=== PATIENT | female | born 1995 | race African-American/Black ===

== ENCOUNTER 2017-08-31 16:57 | Emergency (ER) | payer SELFPAY ==
[~2017-08-31 16:57] MED LIST: ACYC400T PO; DEPO150I IM; LOES1TAB2 PO
[2017-08-31 16:59] VITALS: BP 144/88; PULSE 105; RESP 14; TEMP 98.2; O2SAT 99
--- NOTE | 2017-08-31 19:13 | PD ---
HPI Chief Complaint: GI Complaint Time Seen by Provider: 19:13 Travel History International Travel<30 days: No Contact w/Intl Traveler<30days: No Traveled to known affect area: No History of Present Illness HPI 22 year-old female with history of asthma presents to emergency department for evaluation of nausea and vomiting after eating a great cup from [employer] this afternoon. Patient is reporting epigastric discomfort, moderate in nature. It does not radiate anywhere. No fever or chills. She has had no abdominal surgeries. Last menstrual cycle was August 25. She has no other symptoms to report. PFS Past Medical History Asthma: Yes Developmental Delay: No Diminished Hearing: No Respiratory: Yes (ASTHMA) Immunizations Current: Yes : 2 : 1 Social History Alcohol Use: No Tobacco Use: No Substance Use: No Allergies-Medications (Allergen,Severity, Reaction): Coded Allergies: No Known Allergies (Verified , 07/25/16) Reported Meds & Prescriptions Reported Meds & Active Scripts Active Acyclovir 400 Mg Tab 400 Mg PO BID Depo-Provera Contraceptive (Medroxyprogesterone Acetate) 150 Mg/Ml Susp 150 Mg IM Q90D Loestrin Fe 1/20 (Ethinyl Estradiol/Norethindron/Iron) 28 Tab Pack 1 Tab PO DAILY Review of Systems Except as stated in HPI: all other systems reviewed are Neg Physical Exam Narrative GENERAL: Well-nourished, well-developed female patient, ambulatory and in no acute distress. SKIN: Focused skin assessment warm/dry. HEAD: Normocephalic. EYES: No scleral icterus. No injection or drainage. NECK: Supple, trachea midline. CARDIOVASCULAR: Elevated rate. RESPIRATORY: Breath sounds equal bilaterally. No accessory muscle use. GASTROINTESTINAL: Abdomen nondistended. MUSCULOSKELETAL: No cyanosis, or edema. BACK: without obvious deformity. Data Data Last Documented VS Vital Signs Date Time Temp Pulse Resp B/P (MAP) Pulse Ox O2 Delivery O2 Flow Rate FiO2 08/31/17 18:59 08/31/17 16:59 98.2 105 14 99 Orders Orders Ed Urine Pregnancytest Poc (08/31/17 17:08) MDM Medical Decision Making Medical Screen Exam Complete: Yes Emergency Medical Condition: Yes Medical Record Reviewed: Yes Differential Diagnosis Gastritis versus gastroenteritis versus food poisoning versus electrolyte abnormality versus Narrative Course 22 year-old female presents to the emergency department for evaluation of nausea and vomiting. Patient appears without distress. Her vital signs are stable although she is slightly tachycardic. Workup was initiated in triage. Prior to patient going to a medical bed, she chooses to leave AGAINST MEDICAL ADVICE. AMA: The risks of leaving against medical advice without further evaluation treatment were discussed with the patient. These risks include cardiac dysfunction, cardiac dysrhythmia, possible heart attack, possible stroke or . The patient indicated understanding of these risks and appeared to have the capacity to make this decision. Diagnosis Primary Impression: Nausea and vomiting Qualified Codes: R11.2 - Nausea with vomiting, unspecified Disposition: 07 AGAINST MEDICAL ADVICE Condition: Stable TejedaKaren yoo CIARRA Aug 31, 2017 19:13
== END 2017-08-31 18:10 | disposition left against medical advice (07) ==
LOC: NED 16:57
DX: R11.2 Nausea with vomiting, unspecified (principal)
CPT/HCPCS: 99281

== ENCOUNTER 2017-09-17 23:27 | Emergency (ER) | payer SELFPAY ==
[~2017-09-17] VITALS: Ht 165.1 cm; Wt 105.0 kg
[2017-09-17 23:29] VITALS: BP 167/108; PULSE 83; RESP 16; TEMP 97.8; O2SAT 97
--- NOTE | 2017-09-17 23:58 | PD ---
HPI Chief Complaint: ENT Complaint Time Seen by Provider: 23:41 Travel History International Travel<30 days: No Contact w/Intl Traveler<30days: No Traveled to known affect area: No History of Present Illness HPI Patient comes in complaining of possible foreign body in right ear. Patient states 2 days ago she was cleaning her ears with Q-tips when the cotton ball stuck in her right ear. Patient states her supervisor alteration workroom tried flushing her ear out without success and is making the pain worse. Patient describes pain as an intermittent Sharp stabbing pain in the right ear without radiation. Patient denies anything making it better. Denies any fevers or change in hearing. PFSH Past Medical History Asthma: Yes Developmental Delay: No Diminished Hearing: No Respiratory: Yes (ASTHMA) Immunizations Current: Yes ?: Not LMP: 08/25/17 : 2 : 1 Past Surgical History Section: Yes Social History Alcohol Use: No Tobacco Use: No Substance Use: No Allergies-Medications (Allergen,Severity, Reaction): Coded Allergies: No Known Allergies (Verified Adverse Reaction, Unknown, 09/17/17) Reported Meds & Prescriptions Reported Meds & Active Scripts Active Sejbokcm-Skgirppig-DD Otic Drops (Neomycin/Polymyxin/Hydrocortisone) 1 % Soln 4 Drop RIGHT EAR QID Acyclovir 400 Mg Tab 400 Mg PO BID Depo-Provera Contraceptive (Medroxyprogesterone Acetate) 150 Mg/Ml Susp 150 Mg IM Q90D Loestrin Fe 1/20 (Ethinyl Estradiol/Norethindron/Iron) 28 Tab Pack 1 Tab PO DAILY Review of Systems Except as stated in HPI: all other systems reviewed are Neg Physical Exam Narrative GENERAL: Well-developed, overly nourished, in no acute distress, and non-ill appearing. SKIN: Focused skin assessment warm and dry. HEAD: Atraumatic. Normocephalic. EYES: Pupils equal and round. EOMI. No scleral icterus. No injection or drainage. ENT: No nasal bleeding or discharge. Mucous membranes pink and moist. Tympanic membranes pearly colbert bilaterally. Right auditory canal shows small amount of cerumen with no obvious foreign body noted. NECK: Trachea midline. Supple. No nuclear rigidity. RESPIRATORY: No accessory muscle use. No respiratory distress. MUSCULOSKELETAL: No obvious deformities. No clubbing. No cyanosis. No edema. Full range of motion. NEUROLOGICAL: Awake and alert. No obvious cranial nerve deficits. Motor grossly within normal limits. Normal speech. PSYCHIATRIC: Appropriate mood and affect; insight and judgment normal. Data Data Last Documented VS Vital Signs Date Time Temp Pulse Resp B/P (MAP) Pulse Ox O2 Delivery O2 Flow Rate FiO2 09/17/17 23:29 97.8 83 16 167/108 (127) 97 Room Air Orders Orders Ed Discharge Order (09/17/17 23:59) MDM Medical Decision Making Medical Screen Exam Complete: Yes Emergency Medical Condition: Yes Differential Diagnosis Retained foreign body, otitis media, otitis externa, otalgia Narrative Course Verbal consent was obtained. Right ear was flushed multiple times using warm water. Small amount of cerumen was removed. There was reexamined with no foreign body noted. Will place patient on prophylactic otic eardrops secondary to recent foreign body to prevent secondary infection. Patient in no obvious distress upon re-evaluation. Patient was asked if they wanted to speak to my attending, which the patient did not wish to do at this time. Any questions/concerns in reference to patient diagnosis/condition discussed and clarified prior to patient's discharge. Reinforced sheer importance of close follow up with patient's primary physician or primary care clinic and/or ENT. Instructed patient to return to ED immediately, if symptoms return/worsen. Patient showed understanding of above instructions. Further instructions and recommendations were detailed in discharge paperwork. Patient ambulated without difficulty out of ED at discharge. Diagnosis Primary Impression: Foreign body in ear Qualified Codes: T16.1XXA - Foreign body in right ear, initial encounter Referrals: Alejandro Paige MD [facility] Patient Instructions: Ear Foreign Body (ED), General Instructions Additional Instructions: Follow-up with your primary care physician and/or ENT in 3-5 days for reevaluation. Take all medication as prescribed. Return to the emergency department if symptoms get worse. Med/Other Pt SpecificInfo: Prescription(s) given Scripts Hfzymtao-Nfxltedlf-UW Otic Drops (Ubgfdwdo-Yfngpqoml-WF Otic Drops) 1 % Soln 4 DROP RIGHT EAR QID for Infection, #1 BOTTLE 0 Refills Prov: Chris Steele MD 09/17/17 Disposition: 01 DISCHARGE HOME Condition: Stable Pedro Luis Conti Sep 17, 2017 23:58
[2017-09-17] MEDS ORDERED: CORTI10A RIGHT EAR (23:59)
== END 2017-09-18 00:19 | disposition home or self-care (01) ==
LOC: NEPD 23:27
DX: T16.1XXA Foreign body in right ear, initial encounter (principal); J45.909 Unspecified asthma, uncomplicated
CPT/HCPCS: 69210

== ENCOUNTER 2017-10-07 00:45 | Emergency (ER) | payer SELFPAY ==
[~2017-10-07] VITALS: Ht 165.1 cm; Wt 106.0 kg
[~2017-10-07 00:45] MED LIST changes: +CORTI10A RIGHT EAR
[2017-10-07 00:46] VITALS: BP 144/89; PULSE 84; RESP 16; TEMP 97.9; O2SAT 97
[2017-10-07] MEDS ORDERED: AUGM875T3 PO (00:58)
--- NOTE | 2017-10-07 01:00 | PD ---
HPI Chief Complaint: Cold / Flu Symptoms Time Seen by Provider: 00:57 Travel History International Travel<30 days: No Contact w/Intl Traveler<30days: No History of Present Illness HPI This is a 22-year-old female presents for evaluation. She has had a cough and congestion for 2 weeks. The cough is productive with green mucous production. Over the past several days she has had bilateral ear pain, left greater than right. Pain is throbbing, constant, no alleviating factors. Denies drainage from the ears, recent travel, recent swimming, fevers or chills, sore throat, rash. She has no other complaints at this time. PFSH Past Medical History Asthma: Yes Developmental Delay: No Diminished Hearing: No Respiratory: Yes (ASTHMA) Immunizations Current: Yes ?: Not LMP: 10-04-17 : 2 : 1 Past Surgical History Section: Yes Social History Alcohol Use: No Tobacco Use: No Substance Use: No Allergies-Medications (Allergen,Severity, Reaction): Coded Allergies: No Known Allergies (Verified Adverse Reaction, Unknown, 09/17/17) Reported Meds & Prescriptions Reported Meds & Active Scripts Active Augmentin (Amoxicillin-Clavulanate) 875-125 Mg Tab 1 Tab PO BID 10 Days Jxebfumd-Pyfefppee-WS Otic Drops (Neomycin/Polymyxin/Hydrocortisone) 1 % Soln 4 Drop RIGHT EAR QID Acyclovir 400 Mg Tab 400 Mg PO BID Depo-Provera Contraceptive (Medroxyprogesterone Acetate) 150 Mg/Ml Susp 150 Mg IM Q90D Loestrin Fe 1/20 (Ethinyl Estradiol/Norethindron/Iron) 28 Tab Pack 1 Tab PO DAILY Review of Systems Except as stated in HPI: all other systems reviewed are Neg Physical Exam Narrative GENERAL: Well-developed well-nourished female in no acute distress SKIN: Warm and dry. HEAD: Atraumatic. Normocephalic. EYES: Pupils equal and round. No scleral icterus. No injection or drainage. ENT: No nasal bleeding or discharge. Mucous membranes pink and moist. Bilateral tympanic membranes are bulging and erythematous without perforation. NECK: Trachea midline. No JVD. CARDIOVASCULAR: Regular rate and rhythm. No murmur appreciated. RESPIRATORY: No accessory muscle use. Clear to auscultation. Breath sounds equal bilaterally. Data Data Last Documented VS Vital Signs Date Time Temp Pulse Resp B/P (MAP) Pulse Ox O2 Delivery O2 Flow Rate FiO2 10/07/17 00:46 97.9 84 16 144/89 (107) 97 Room Air MDM Medical Decision Making Medical Screen Exam Complete: Yes Emergency Medical Condition: Yes Medical Record Reviewed: Yes Differential Diagnosis Otitis media, eustachian tube dysfunction, otitis externa, mastoiditis, tympanic membrane perforation Narrative Course Examination and history are consistent with upper respiratory infection with bilateral otitis media. The patient is being discharged with Augmentin. Diagnosis Primary Impression: Otitis media Qualified Codes: H66.003 - Acute suppurative otitis media without spontaneous rupture of ear drum, bilateral Additional Instructions: Medication as prescribed. Use pdla-ivw-lnsehoo nasal decongestants and cough suppressants. Stay well hydrated well-nourished. Follow-up with primary care physician as needed. Return for any emergent medical conditions. Med/Other Pt SpecificInfo: Prescription(s) given Scripts Amoxicillin-Clavulanate (Augmentin) 875-125 Mg Tab 1 TAB PO BID for Infection for 10 Days, #20 TAB 0 Refills Prov: Mundo Youssef MD 10/07/17 Disposition: DISCHARGE HOME Condition: Stable Sunil Chavez Oct 07, 2017 01:00
== END 2017-10-07 02:36 | disposition home or self-care (01) ==
LOC: NEPD 00:45
DX: H66.93 Otitis media, unspecified, bilateral (principal); J06.9 Acute upper respiratory infection, unspecified; J45.909 Unspecified asthma, uncomplicated; Z79.899 Other long term (current) drug therapy
CPT/HCPCS: 99283

== ENCOUNTER 2017-10-12 16:24 | Emergency (ER) | payer SELFPAY ==
[~2017-10-12] VITALS: Ht 165.1 cm; Wt 106.5 kg
[~2017-10-12 16:24] MED LIST changes: +AUGM875T3 PO
[2017-10-12 16:41] VITALS: BP 133/72; PULSE 79; RESP 16; TEMP 98.4; O2SAT 99
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
[2017-10-12] MEDS ORDERED: OFLO0.3D9 EACH EAR (18:53)
== END 2017-10-12 19:00 | disposition home or self-care (01) ==
LOC: PHED 16:24 → PHEFT 19:00
DX: H60.503 Unspecified acute noninfective otitis externa, bilateral (principal); J45.909 Unspecified asthma, uncomplicated
CPT/HCPCS: 99283

== ENCOUNTER 2018-03-01 19:24 | Emergency (ER) | payer SELFPAY ==
[~2018-03-01] VITALS: Ht 165.1 cm; Wt 108.0 kg
[~2018-03-01 19:24] MED LIST changes: -ACYC400T PO; -AUGM875T3 PO; -CORTI10A RIGHT EAR; -DEPO150I IM; -LOES1TAB2 PO; +OFLO0.3D9 EACH EAR
[2018-03-01 19:49] VITALS: BP 146/88; PULSE 100; RESP 16; TEMP 99; O2SAT 100
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
[2018-03-01] MEDS ORDERED: ALBU0.63 NEB (21:06)
[2018-03-01] MEDS ORDERED: ACYC400T PO (21:06)
[2018-03-01] MEDS ORDERED: IBUPROFEN 800 MG TAB PO ONE (21:15)
[2018-03-01] MEDS ORDERED: IBUP1TAB7 PO (21:16)
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
== END 2018-03-01 23:04 | disposition home or self-care (01) ==
LOC: NEPK 19:24 → NEPD 23:04
DX: S93.401A Sprain of unspecified ligament of right ankle, initial encounter (principal); W50.0XXA Accidental hit or strike by another person, initial encounter
CPT/HCPCS: 73600; 99283; E0113